=== PATIENT | female | born 1985 | race Caucasian/White ===

== ENCOUNTER 2021-11-29 09:35 | Outpatient (CLI) | payer BC | END 2021-11-29 09:36 | disposition home or self-care (01) | LOC: CSHULT 09:35 | PROVIDERS: ATTEND Family Medicine | DX: R10.11 Right upper quadrant pain (principal) | CPT/HCPCS: 76700 ==

== ENCOUNTER 2023-10-29 05:30 | Inpatient (IN) | payer OTHER ==
[2023-11-02] MEDS: Lactated Ringer's 1,000 ML IV SCH (10:05)
[2023-11-02 10:17] VITALS: BMI 25.0
[2023-11-02] MEDS ORDERED: Promethazine HCl 25 MG/ML VIAL IM PRN ×2 (10:21→14:03)
[2023-11-02] MEDS ORDERED: Ondansetron PF 4 MG/2 ML Vial IVP PRN ×3 (10:21→17:19)
[2023-11-02] MEDS ORDERED: Diphenoxylate HCl/Atropine Tablet PO PRN ×2 (10:21)
[2023-11-02] MEDS ORDERED: hydrALAZINE 20 MG/ML VIAL SLOW IVP PRN ×2 (10:21→17:19)
[2023-11-02] MEDS ORDERED: Carboprost 250 MCG/ML AMP IM PRN (10:21)
[2023-11-02] MEDS ORDERED: Acetaminophen 500 MG TAB PO PRN (10:21)
[2023-11-02] MEDS ORDERED: Docusate 100 MG CAP PO PRN (10:21)
[2023-11-02] MEDS ORDERED: Oxytocin 30 units/NS 500 ML 500 ML IV SCH ×2 (10:21→17:30)
[2023-11-02] MEDS ORDERED: HYDROcodone/Acetaminophen 5/325 mg Tablet PO PRN ×4 (10:21→17:19)
[2023-11-02] MEDS ORDERED: Butorphanol Tartrate 1 MG/ML VIAL SLOW IVP PRN (10:21)
[2023-11-02] MEDS ORDERED: Methylergonovine 0.2 MG/ML VIAL IM PRN (10:21)
[2023-11-02] MEDS ORDERED: Lidocaine 1% (PF) 30 ML VIAL SC PRN (10:21)
[2023-11-02] MEDS ORDERED: Misoprostol 200 MCG TAB PR PRN (10:21)
[2023-11-02] MEDS: Oxytocin 30 units/NS 500 ML 500 ML IV SCH ×2 (10:52→17:10)
[2023-11-02 10:56] LABS: Hematocrit 34.3 % (34.9-44.5); Hemoglobin 11.8 g/dL (12.0-15.5); Mean Corpuscular HGB CONC 34.4 g/dL (32.0-36.0); Mean Corpuscular Hemoglobin 33.2 pg (27.0-33.0); Mean Corpuscular Volume 96.6 fL (81.6-98.3); Mean Platelet Volume 10.7 fL (7.4-10.4); Platelet Count 186 10x3/uL (150-450); RBC Distribution Width 12.3 % (11.5-14.5); Red Blood Cell (RBC) Count 3.55 10x6/uL (3.90-5.03); White Blood Cell (WBC) Count 8.6 10x3/uL (3.5-10.5)
[2023-11-02 11:35] LABS: Syphilis Antibody Nonreactive (Nonreactive); Syphilis Antibody Index 0.03 S/CO (<1.00 Non-Reactive)
[2023-11-02 11:37] LABS: HBsAg Index 0.19 S/CO (0-0.99); HIV (1/2) Antibody/Antigen Non-Reactive (NonReactive); HIV 1/2 INDEX 0.27 S/CO (<1.00); Hep B Surf Ag - L&D Non-Reactive S/CO (NonReactive)
[2023-11-02] MEDS: fentaNYL/Ropivacaine Epidural 100 ML ONE (12:20)
[2023-11-02] MEDS ORDERED: Lactated Ringer's 500 ML IV PRN (14:03)
[2023-11-02] MEDS ORDERED: ePHEDrine Sulfate 50 MG/10 ML VIAL SLOW IVP PRN (14:03)
[2023-11-02] MEDS ORDERED: Moisturizing Cream (Eucerin) 113 GM JAR TOP PRN (14:03)
[2023-11-02] MEDS ORDERED: Naloxone HCl 0.4 mg/ml Vial IVP PRN ×2 (14:03)
[2023-11-02] MEDS ORDERED: diphenhydrAMINE 50 MG/ML VIAL IVP PRN (14:03)
[2023-11-02] MEDS ORDERED: Acetaminophen 325 MG TAB PO PRN (14:03)
[2023-11-02] MEDS ORDERED: fentaNYL 2 mcg/Ropivacaine 0.2% Epidural 100 ML CADD EPIDURAL SCH (14:15)
[2023-11-02] MEDS ORDERED: Communication Order-Pharmacy FS SCH (14:15)
[2023-11-02] MEDS ORDERED: ePHEDrine Sulfate 50 MG/10 ML VIAL IM PRN (14:15)
[2023-11-02] MEDS ORDERED: diphenhydrAMINE 25 MG CAP PO PRN (17:19)
[2023-11-02] MEDS ORDERED: Benzocaine-Menthol 82.5 ML CAN TOP PRN (17:19)
[2023-11-02] MEDS ORDERED: Milk Of Magnesia 30 ML UDCUP PO PRN (17:19)
[2023-11-02] MEDS ORDERED: Lanolin Ointment 7 GM TUBE TOP PRN (17:19)
[2023-11-02] MEDS ORDERED: Zolpidem Tartrate 5 MG TAB PO PRN (17:19)
[2023-11-02] MEDS ORDERED: Preparation H Ointment 28 GM TUBE PR PRN (17:19)
[2023-11-02] MEDS ORDERED: Bisacodyl 10 MG SUPP PR PRN (17:19)
[2023-11-02] MEDS ORDERED: Witch Hazel 100 PAD JAR TOP PRN (17:21)
[2023-11-02] MEDS ORDERED: Bupivacaine 0.25% HCL 30 ML VIAL ONE (18:00)
[2023-11-02] MEDS ORDERED: ePHEDrine Sulfate 50 MG/10 ML VIAL ONE (18:00)
[2023-11-02] MEDS: Ibuprofen 800 MG TAB PO PRN (18:14)
[2023-11-02] MEDS: Docusate 100 MG CAP PO SCH (21:44)
[2023-11-02] MEDS: Ibuprofen 800 MG TAB PO SCH (22:07)
[2023-11-03] MEDS: Ibuprofen 800 MG TAB PO SCH (02:12)
[2023-11-03] MEDS: Boostrix 0.5 ML (Tdap) VIAL (>/=7 yrs of age) IM ONE (08:05)
[2023-11-03] MEDS: Ferrous Sulfate 325 MG TAB PO SCH (08:05)
[2023-11-03] MEDS: Prenatal Vitamin 1 TAB PO SCH (08:06)
[2023-11-03] MEDS: Acetaminophen 500 MG TAB PO PRN (13:48)
[2023-11-03 15:55] VITALS: BP 104/58; TEMP 98.4
== END 2023-11-03 18:10 | disposition home or self-care (01) | DRG 807 ==
LOC: CSHLD 11-02 09:30 → OBSVTOIN 11-02 09:31 → CSHPP 11-02 19:45
PROVIDERS: ADMIT Obstetrics & Gynecology; ATTEND Obstetrics & Gynecology
PROC: 10D07Z6 Extraction of Products of Conception, Vacuum, Via Natural or Artificial Opening (ICD-10-PCS; principal; 2023-11-02)
PROC: 10907ZC Drainage of Amniotic Fluid, Therapeutic from Products of Conception, Via Natural or Artificial Opening (ICD-10-PCS; 2023-11-02)
PROC: 3E033VJ Introduction of Other Hormone into Peripheral Vein, Percutaneous Approach (ICD-10-PCS; 2023-11-02)
DX: O76 Abnormality in fetal heart rate and rhythm complicating labor and delivery (principal); Z37.0 Single live birth; O09.523 Supervision of elderly multigravida, third trimester; Z3A.39 39 weeks gestation of pregnancy
CPT/HCPCS: 51702; 85027; 86780; 86850; 86900; 86901; 87340; 87389; 88307; J0665; J2590; J7120